=== PATIENT | female | born 1980 | race Caucasian/White ===

== ENCOUNTER 2017-12-11 08:19 | Emergency (ER) | payer OTHER ==
[~2017-12-11] VITALS: Ht 188 cm; Wt 127.0 kg
[~2017-12-11 08:19] MED LIST: ATORVASTATIN CA10 MG PO; JANUMET 1000 MG1 TAB PO; LANTUS SOLOS100 U/ML SC; METFORMIN HYD1000 MG PO; MUCINEX1200 MG PO; PRINIVIL 5MG5 MG PO; VALIUM5 M1 PO; VICODIN5-300 PO
[2017-12-11 08:22] VITALS: BP 106/69
--- NOTE | 2017-12-11 08:50 | ED GI/GU/ABDOMINAL COMPLAINT ---
History of Present Illness General Chief Complaint: Upper Respiratory Sx/Fever Stated Complaint: C/O COLD SYMPOTOMS Vital Signs & Intake/Output Vital Signs & Intake/Output Vital Signs Date Time Temp Pulse Resp B/P B/P Pulse O2 O2 Flow FiO2 Mean Ox Delivery Rate 12/11 0822 96.8 110 18 106/69 99 Room Air Room Air Allergies Coded Allergies: Corticosteroids (Glucocorticoids) (Intermediate, RASH 05/14/16) Reconcile Medications Atorvastatin Calcium (Lipitor) 10 MG TABLET 1 TAB PO DAILY CHOLESTEROL ( Reported) Diazepam (Valium) 5 MG TABLET 1 TAB PO Q6-PRN muscle spasms Guaifenesin (Mucinex) (Unknown Strength) TAB.ER.12H (Unknown Dose) PO DAILY UNKNOWN (Reported) HYDROCODONE/ACETAMINOPHEN (Hydrocodon-Acetaminophen 5-325) 5 MG-325 MG TABLET 1-2 TAB PO Q4-6 PRN pain Insulin Glargine, Recombinan (Lantus Solostar) 100 U/ML JS 30 UNITS SC BID DIABETES (Reported) Lisinopril (Prinivil) 5 MG TABLET 1 TAB PO DAILY HTN (Reported) Metformin Hydrochloride/Brisa (Janumet 1000 MG-50 MG) 1 TAB TAB 1 TAB PO BID DIABETES Triage Note: PT TO ED WITH C/O NASAL CONGESTION, COUGH X 2-3 WEEKS "MY MOTHER HAS IT TOO, SHE IS JUST GETTING A LITTLE BETTER FROM [facility]". 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
--- NOTE | 2017-12-11 09:35 | ED INFLUENZA/URI COMPLAINT ---
History of Present Illness General Chief Complaint: Upper Respiratory Sx/Fever Stated Complaint: C/O COLD SYMPOTOMS Source: patient Exam Limitations: no limitations Vital Signs & Intake/Output Vital Signs & Intake/Output Vital Signs Date Time Temp Pulse Resp B/P B/P Pulse O2 O2 Flow FiO2 Mean Ox Delivery Rate 12/11 0822 96.8 110 18 106/69 99 Room Air Room Air Allergies Coded Allergies: Corticosteroids (Glucocorticoids) (Intermediate, RASH 05/14/16) Reconcile Medications Atorvastatin Calcium (Lipitor) 10 MG TABLET 1 TAB PO DAILY CHOLESTEROL ( Reported) Azithromycin (Zithromax) 250 MG TABLET 1 DP PO AD SINUSITIS 2 the first day followed by 1 for days 2-5 Benzonatate (Tessalon Perle) 100 MG CAPSULE 1 CAP PO TID PRN COUGH Diazepam (Valium) 5 MG TABLET 1 TAB PO Q6-PRN muscle spasms Guaifenesin (Mucinex) (Unknown Strength) TAB.ER.12H (Unknown Dose) PO DAILY UNKNOWN (Reported) HYDROCODONE/ACETAMINOPHEN (Hydrocodon-Acetaminophen 5-325) 5 MG-325 MG TABLET 1-2 TAB PO Q4-6 PRN pain Insulin Glargine, Recombinan (Lantus Solostar) 100 U/ML JS 30 UNITS SC BID DIABETES (Reported) Lisinopril (Prinivil) 5 MG TABLET 1 TAB PO DAILY HTN (Reported) Metformin Hydrochloride/Brisa (Janumet 1000 MG-50 MG) 1 TAB TAB 1 TAB PO BID DIABETES Triage Note: PT TO ED WITH C/O NASAL CONGESTION, COUGH X 2-3 WEEKS "MY MOTHER HAS IT TOO, SHE IS JUST GETTING A LITTLE BETTER FROM [facility]". Triage Nurses Notes Reviewed? yes Onset: Abrupt Duration: week(s): (2) Timing: recent history Severity: mild, moderate Associated Symptoms: cough, sinus infection, sore throat : No Patient currently breastfeeds: No HPI: This is a 29-year-old female presents to the ER with chief complaint of sinus congestion, cough, sore throat. She's been dealing with these symptoms for 2 weeks trying [id number] remedies. She is using her inhaler twice a day as recommended. Mother was sick with similar symptoms. She denies any high fever or body aches. She complains of persistent sore throat and sinus tenderness. She is a nonsmoker. No other associated symptoms. Past History Travel History Traveled to [place] past 21 day No Medical History Any Pertinent Medical History? 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 No Review of Systems Review of Systems Constitutional: Reports: no symptoms. EENTM: Reports: no symptoms. Respiratory: Reports: no symptoms. Cardiovascular: Reports: no symptoms. GI: Reports: no symptoms. Genitourinary: Reports: no symptoms. Musculoskeletal: Reports: no symptoms. Skin: Reports: no symptoms. Neurological/Psychological: Reports: no symptoms. Hematologic/Endocrine: Reports: no symptoms. Immunologic/Allergic: Reports: no symptoms. All Other Systems: Reviewed and Negative Physical Exam Physical Exam General Appearance: well developed/nourished, alert, awake Head: atraumatic, normal appearance Eyes: Bilateral: normal appearance, PERRL, EOMI. Ears, Nose, Throat: normal ENT inspection, Tympanic normal, pharynx normal, SINUS TENDERNESS Neck: normal inspection, supple, full range of motion Respiratory: normal breath sounds, chest non-tender, no respiratory distress Cardiovascular: regular rate/rhythm Extremities: normal inspection, normal range of motion Neurologic/Psych: no motor/sensory deficits, awake, alert, oriented x 3 Skin: intact, normal color, warm/dry Core Measures Sepsis Present: No Sepsis Focused Exam Completed? No Progress Differential Diagnosis: pharyngitis, sinusitis Plan of Care: ABX, COUGH MEDICINE Initial ED EKG: none Departure Departure Time of Disposition: 934 Disposition: HOME OR SELF CARE Condition: Stable Clinical Impression Primary Impression: Sinusitis Referrals: Porfirio SOTO,Tenzin Ruiz (PCP/Family) Additional Instructions: TAKE THE ZPACK AND USE THE TESSALON PEARLES DIRECTED CONTINUE YOUR INHALER FOLLOW UP WITH YOUR DOCTOR RETURN NEEDED Departure Forms: Customer Survey General Discharge Information Prescriptions: Current Visit Scripts Azithromycin (Zithromax) 1 DP PO AD #6 TAB 2 the first day followed by 1 for days 2-5 Benzonatate (Tessalon Perle) 1 CAP PO TID PRN COUGH #30 CAP
[2017-12-11] MEDS ORDERED: TESSALON PERLE100 M1 PO (09:37)
[2017-12-11] MEDS ORDERED: ZITHROMAX250 M2 PO (09:37)
== END 2017-12-11 09:40 ==
LOC: ERH 08:19
DX: J32.9 Chronic sinusitis, unspecified (principal)